=== PATIENT | male | born 1950 | race Caucasian/White ===

== ENCOUNTER → 2017-11-01 | Outpatient (CLI) | payer OTHER ==
[~2017-11-01] MED LIST: AMOCLA875 PO; AMOX500 PO; CARI350 PO; CEPH500 PO; CIPDEXSU OT; CLIN300 PO; CYCL10 PO; Cleocin HCl300 MG PO; DOC250 PO; DULO30 PO; FURO40 PO; HYDACE5 PO; IBUP200; IBUP400 PO; IBUP600 PO; IBUP800; IBUP800 PO; K-SOL40 MEQ/15 PO; LEVO750 PO; METCAR500 PO; NAPR500 PO; NYST100000 PO; OXYACE5T PO; OXYACE7.5T PO; OXYC10ER PO; OXYC5; OXYC5 PO; PENNAL50 PO; PENVK500 PO; PROM25 PO; Prednisone20 MG PO; RXHYDMOR2 PO; RXTRAM50 PO; SILSUL1TC TOP; SULTRIDS PO; SUMA25 PO; TRAM50 PO; VITAMIN D5000 UNIT PO; Zithromax250 MG PO
== END | disposition home or self-care (01) ==
LOC: LAB SHORT 15:10 → LAB 15:10
DX: I83.009 Varicose veins of unspecified lower extremity with ulcer of unspecified site (principal); L01.00 Impetigo, unspecified
CPT/HCPCS: 87070; 87205

== ENCOUNTER → 2018-08-08 | Outpatient (CLI) | payer OTHER ==
[2018-08-09 10:28] LABS: Antinuclear Antibody Screen Negative (Negative)
== END | disposition home or self-care (01) ==
LOC: LAB SHORT 10:40 → LAB 10:40
PROVIDERS: Internal Medicine Hematology & Oncology
DX: D69.3 Immune thrombocytopenic purpura (principal); I82.622 Acute embolism and thrombosis of deep veins of left upper extremity
CPT/HCPCS: 86038

== ENCOUNTER 2018-08-19 07:25 | Day surgery (SDC) | payer OTHER | END 2018-08-19 17:32 | disposition home or self-care (01) | LOC: ATC 07:25 → EDSTATUS 07:27 → ATC 17:32 | DX: D69.3 Immune thrombocytopenic purpura (principal) | CPT/HCPCS: 36430; 86850; 86900; 86901; 86923; J7050; P9016 ==

== ENCOUNTER → 2018-09-04 | Outpatient (CLI) | payer OTHER ==
[2018-09-06 04:12] LABS: HIV SCREEN 4TH GENERATION WRFX Non Reactive (Non Reactive)
== END | disposition home or self-care (01) ==
LOC: LAB 14:27 → LAB SHORT 14:27
PROVIDERS: Internal Medicine Hematology & Oncology
DX: D69.3 Immune thrombocytopenic purpura (principal)
CPT/HCPCS: 87389

== ENCOUNTER 2019-01-13 07:09 | Inpatient (IN) | payer OTHER ==
[~2019-01-13] VITALS: Ht 160 cm; Wt 49.1 kg
[2019-01-13] MEDS ORDERED: ALBU90OI INH (07:20)
[2019-01-13] MEDS ORDERED: BUDE6HFA INH (07:20)
[2019-01-13] MEDS ORDERED: Bactrim 400-801 EACH PO (07:21)
[2019-01-13 07:29] LABS: BASOPHILS ABSOLUTE AUTO 0.04 K/mm3 (0.00-0.23); BASOPHILS PERCENT AUTO 0 % (0-2); EOSINOPHILS ABSOLUTE AUTO 0.12 K/mm3 (0.00-0.68); EOSINOPHILS PERCENT AUTO 1 % (0-6); Hematocrit 46.1 % (37.0-53.0); Hemoglobin 14.9 g/dL (13.5-17.5); IMMATURE GRAN ABSOLUTE AUTO 0.06 K/mm3 (0.00-0.10); IMMATURE GRAN PERCENT AUTO 0 % (0-1); LYMPHOCYTES ABSOLUTE AUTO 0.52 K/mm3 (0.84-5.20); LYMPHOCYTES PERCENT AUTO 4 % (21-46); MONOCYTES ABSOLUTE AUTO 1.07 K/mm3 (0.16-1.47); MONOCYTES PERCENT AUTO 8 % (4-13); Mean Corpuscular HGB 26.9 pg (26.0-34.0); Mean Corpuscular HGB Conc 32.3 g/dL (31.5-36.5); Mean Corpuscular Volume 83 fL (80-100); Mean Platelet Volume 9.6 fL (9.1-12.4); NEUTROPHILS ABSOLUTE AUTO 12.25 K/mm3 (1.96-9.15); NEUTROPHILS PERCENT AUTO 87 % (41-73); Platelet Count 162 K/mm3 (150-400); RDW Coefficient Variation 22.1 % (11.7-14.2); RDW Standard Deviation 65.9 fL (35.1-46.3); Red Blood Cell Count 5.53 M/mm3 (4.30-5.90); White Blood Cell Count 14.06 K/mm3 (4.00-11.30)
[2019-01-13 07:47] LABS: Alanine Aminotransfer (ALT/SGP 25 U/L (12-78); Albumin, Blood 3.2 g/dL (3.4-5.0); Albumin/Globulin Ratio 0.6 (0.8-1.8); Alk Phos 83 U/L (50-136); Anion Gap 4 mmol/L (6-16); Aspartate Aminotrans (AST/SGOT 13 U/L (12-37); Bilirubin, Total 0.6 mg/dL (0.1-1.0); Blood Urea Nitrogen 7 mg/dL (8-24); Bun/Creatinine Ratio 15.6 (12.0-20.0); CO2, Blood 31 mmol/L (21-32); Calcium, Blood 7.7 mg/dL (8.5-10.1); Chloride, Blood 103 mmol/L (98-108); Creatinine, Blood 0.45 mg/dL (0.60-1.20); Globulin, Blood 5.4 g/dL (2.2-4.0); Glomerular Filtration Rate >60 (60-); Glucose, Blood 113 mg/dL (70-99); Potassium, Blood 3.4 mmol/L (3.5-5.5); Sodium, Blood 138 mmol/L (136-145); Total Protein, Blood 8.6 g/dL (6.4-8.2)
--- NOTE | 2019-01-13 13:06 | NUR ---
1120 ADMIT TO PCU STATUS... VERY THIN DECONDITIONED PT ADMITTED PER STRETCHER TO ICU-14. ON O2 AT 3L AND SATS ADIQUATE BUT PT WOB IS NOTED AT RR OF 22-[address] ELEVATED BP THAT INC. WITH ACTIVITIY OF STANDING AT BED SIDE. POOR PERIPHERAL SKIN CONTITION, SEE PHOTO'S. RT REQUESTED FOR RX. PT HAS BEEN CALLING OUT FOR MORE MEDS AND WAS INSTRUCTED MULTIPLE TIMES THAT ORDERS MUST BE FOLLOWED GIVEN FOR NOW. PT IS COOP BUT VERY RESTLESS, WEAK, AND SOB. IV IS PER RAC 20G PER E.D. ABX AND CARE GIVEN. LUNGS ARE VERY DIM. T/O.
--- NOTE | 2019-01-13 15:32 | NUR ---
PT CONT TO GET UP FREQUENTLY TO VOID AND BM NOTED X3. STOOL FOR C-DIFF SENT. PT REMAINS VERY IMPULSIVE AND RESTLESS EVEN WITH MEDS FOR PAIN/WITHRAWAL. NS AT 100ML AND ABX INFUSING. PT REMAIN RESTLESS AND IT REMAINS UNCLEAR IF M.S. IS HELPING. WILL FOLLOW. BP IS ELEVATED AND WILL CALL TO REPORT.
--- NOTE | 2019-01-13 18:48 | NUR ---
170: CARE ASSUMED, MORPHINE ADMINISTERED FOR BACK PAIN 04/29. PT DENIES OTHER NEEDS. HR 110'S, BP HYPERTENSIVE. 1800: LS DIMINISHED WITH EXPIRATORY WHEEZES T/O, PT C/O SOB. SPOT 94% ON 3L/NC. PT ANXIOUS AND AGITATED, FRIEND AT BEDSIDE. PT ORIENTED TO SELF AND SITUATION, CONFUSED ABOUT DATE. ACTING IMPULSIVELY. BED ALARM ON, FALL PRECAUTIONS IN PLACE. 1814: RT CALLED FOR NEB TREATMENT. SPO2 92% 3L/NC. 1834: BP 183/101, DR. TALBERT NOTIFIED, [place] RECEIVED. PT'S FRIEND NO LONGER AT BEDSIDE. 1849: COZAAR AND NICOTINE PATCH ADMINISTERED AT THIS TIME. PT'S SOB IMPROVING, SPO2 97% ON RA. PT HAS EXERTIONAL SOB WHICH IS EXACERBATED BY IMPULSIVE BEHAVIORS. PT REPEATEDLY TRIES TO GET OOB TO VOID, DESPITE SOB AND INSTRUCTION TO USE CALL LIGHT. GAIT STEADY TO STAND AT BEDSIDE WITH SBA, BUT PT BECOMES ANXIOUS WITH INCREASING SOB. PT IN BED AT THIS TIME, NEEDS CONSTANT REDIRECTION TO STAY IN BED. REPORT TO ONCOMING SHIFT.
--- NOTE | 2019-01-13 20:21 | NUR ---
ASSUMING CARE RECEIVED PT REPORT FROM KRIS ALEMAN. PT IS ALERT AND ORIENTED THOUGH SPEECH IS GARBLED AND DIFFICULT TO UNDERSTAND. PT IS DISORIENTED TO DATE AND TIME. PT IS ADMITTED DUE TO SOB AND PNEUMONIA. PT IS ON 3L O2 VIA NC WITH SPO2 IN THE MID 90'S. PT IS CONTINUALLY PULLING AT O2 TUBING AND REMOVING NC. PT IS ABLE TO FOLLOW COMMANDS BUT APPEARS TO BE HIGHLY IMPULSIVE AND HAS NOT BEEN OBSERVED TO USE CALL LIGHT OF YET BY THIS RN, DESPITE INSTRUCTIONS TO DO SO. PT IS RECEIVING NS AT 100ML/HR, WITH ZOSYN PIGGYBACK RUNNING AT THIS TIME. PT LUNG SOUNDS EXHIBIT WHEEZES AND ARE DIMINISHED IN THE BASES. PT HAS VERY SCALY SKIN ON THE BLE FROM THE KNEES DOWN. PT PULSES ARE PALPABLE BILATERALLY. PT HAS BEEN MAKING VERY FREQUENT SMALL VOIDS. PT IS KATT TO STAND WITH MINIMAL ASSISTANCE. BEDALARM ON AT THIS ITME DUE TO PTS FREQUENT ATTEMPTS TO GET OUT OF BED WITHOUT ASSISTANCE. PT HR IS IN THE 100'S AT THIS ITME. PT SBP IS IN THE 160-180 RANGE. PT PROVIDED 2100 MEDICATIONS, WILL OBSERVE EFFECT ON SBP BEFORE ADMINISTERING FURTHER MEDICATIONS. ASSUMED CARE OF PT AT THE TIME OF SHIFT REPORT. WILL CONTINUE TO MONITOR PT.
[2019-01-14 01:21] LABS: Source, Urine Catheter
[2019-01-14 01:27] LABS: Appearance, Urine Clear (Clear); Bilirubin, Urine Neg (Neg); Blood, Urine 2+ (Neg); Color, Urine Yellow (P-Yellow); Glucose Qualitative, Urine 1+ (Neg); Ketones, Urine 3+ (Neg); Leukocyte Esterase, Urine Neg (Neg); Nitrite, Urine Neg (Neg); Protein, Urine 1+ (Neg); Specific Gravity, Urine 1.005 (1.003-1.022); Urobilinogen, Urine NORM (Normal)
[2019-01-14 01:34] LABS: Bacteria Few /hpf; Red Blood Cells, Urine 0-2 /hpf (0-2); Squamous Epithelial Cells Not Seen /hpf (Few); White Blood Cells, Urine 0-2 /hpf (0-5)
--- NOTE | 2019-01-14 01:38 | NUR ---
CATHETER PT HAS HAD MULTIPLE FREQUENT SMALL VOIDS OF LESS THAN 100ML. PT CALLED THIS RN INTO ROOM TWICE TO USE URINAL WITHOUT ANY URINE OUTPUT. BLADDR SCAN PERFORMED WITH APPROX 400ML OF URINE READ THROUGH BLADDER SCAN. CRAWFORD CATH INSERTED WITH ASSISTANCE FROM ZARINA RN. PT HAD APPROX 350 OF CLEAR YELLOW URINE OUTPUT SOON CRAWFORD PLACED. UA SENT TO LAB. WILL CONTINUE TO MONITOR PT.
[2019-01-14 05:27] LABS: BASOPHILS ABSOLUTE AUTO 0.03 K/mm3 (0.00-0.23); BASOPHILS PERCENT AUTO 0 % (0-2); EOSINOPHILS ABSOLUTE AUTO 0.01 K/mm3 (0.00-0.68); EOSINOPHILS PERCENT AUTO 0 % (0-6); Hematocrit 46.6 % (37.0-53.0); Hemoglobin 15.5 g/dL (13.5-17.5); IMMATURE GRAN ABSOLUTE AUTO 0.08 K/mm3 (0.00-0.10); IMMATURE GRAN PERCENT AUTO 1 % (0-1); LYMPHOCYTES ABSOLUTE AUTO 0.44 K/mm3 (0.84-5.20); LYMPHOCYTES PERCENT AUTO 3 % (21-46); MONOCYTES ABSOLUTE AUTO 0.85 K/mm3 (0.16-1.47); MONOCYTES PERCENT AUTO 6 % (4-13); Mean Corpuscular HGB 27.1 pg (26.0-34.0); Mean Corpuscular HGB Conc 33.3 g/dL (31.5-36.5); Mean Corpuscular Volume 82 fL (80-100); Mean Platelet Volume 10.1 fL (9.1-12.4); NEUTROPHILS ABSOLUTE AUTO 13.05 K/mm3 (1.96-9.15); NEUTROPHILS PERCENT AUTO 90 % (41-73); Platelet Count 121 K/mm3 (150-400); RDW Coefficient Variation 21.7 % (11.7-14.2); RDW Standard Deviation 63.1 fL (35.1-46.3); Red Blood Cell Count 5.72 M/mm3 (4.30-5.90); White Blood Cell Count 14.46 K/mm3 (4.00-11.30)
[2019-01-14 05:45] LABS: Alanine Aminotransfer (ALT/SGP 25 U/L (12-78); Albumin/Globulin Ratio 0.6 (0.8-1.8); Alk Phos 75 U/L (50-136); Anion Gap 7 mmol/L (6-16); Aspartate Aminotrans (AST/SGOT 18 U/L (12-37); Bilirubin, Total 0.5 mg/dL (0.1-1.0); Blood Urea Nitrogen 6 mg/dL (8-24); Bun/Creatinine Ratio 16.9 (12.0-20.0); CO2, Blood 29 mmol/L (21-32); Calcium, Blood 7.1 mg/dL (8.5-10.1); Chloride, Blood 103 mmol/L (98-108); Creatinine, Blood 0.36 mg/dL (0.60-1.20); Globulin, Blood 4.9 g/dL (2.2-4.0); Glomerular Filtration Rate >60 (60-); Glucose, Blood 108 mg/dL (70-99); Potassium, Blood 3.2 mmol/L (3.5-5.5); Sodium, Blood 139 mmol/L (136-145); Total Protein, Blood 7.9 g/dL (6.4-8.2); Vancomycin, Trough 1.9 ug/mL (5.0-10.0)
--- NOTE | 2019-01-14 05:55 | NUR ---
SHIFT SUMMARY NOTE PT HAS BECOME MORE CONFUSED AND IMPULSIVE OVERNIGHT. PT HAS MADE FREQUENT ATTEMPTS TO GET OUT OF BED TO URINATE, DESPITE HAVING CRAWFORD CATH IN PLACE. PT WAS ALSO OBSERVED TO PULL AT CRAWFORD CATH. PT IS IN AYAAN VEST AT THIS TIME. PT CONTINUES TO ATTEMPT TO CLIMB OUT OF BED. PT HR HAS MAINTAINED IN THE 90-100 RANGE AND APPEARS SINUS. PT BP HAS BEEN ELEVATED AT TIMES REACHING INTO THE 200'S. DR HAN CALLED, AND ORDER RECEIVED FOR LABETALOL. LABETALOL PROVIDED WITH SOME EFFECT, REDUCING SBP TO THE 160'S. PT HAS BEEN PROVIDED MORPHINE FREQUENTLY AND ATIVAN X1 THROUGH THE SHIFT. PT REMAINS ON 3L O2 VIA NC WITH SPO2 MAINTAINING IN THE 90'S. PT CONTINUES TO BE WHEEZY AND HAVE A PRODUCTIVE COUGH. PT CONTINUES TO RECEIVE NS AT 100ML/HR. [facility]
--- NOTE | 2019-01-14 11:42 | NUR ---
AM NOTE... PT IS C/O NEEDING "MEDICATIONS" AND IS MUMBLING AT TIMES. PT NOW HAS CRAWFORD CATH OF YELLOW CLEAR URINE. VS NOTED. BP REMAINS ELEVATED AND WILL ADDRESS WTIH DR TALBERT.
--- NOTE | 2019-01-14 17:46 | NUR ---
RECEIVED REPORT FROM KRIS Gorman. PT WILL BE TRANSFERRED FROM ICU TO PCU 13. AWAITING ARRIVAL OF PATIENT.
--- NOTE | 2019-01-14 18:24 | NUR ---
PATIENT ARRIVED TO UNIT, 3 LPM VIA NC. PT REPORTS PAIN 9/10, WILL LOOK AT EMAR AND ASSESS WHAT MEDICATIONS CAN BE GIVEN BEFORE SHIFT CHANGE. PT APPEARS RESTFUL, HE REPOSITIONED INDEPENDENTLY TO RIGHT SIDE. CRAWFORD IN PLACE, DRAINING TO GRAVITY. AYAAN IN PLACE SECURED TO BED B/L. WILL CONTINUE TO MONITOR AND GIVE REPORT TO NOC RN. BED LOCKED, LOW AND ALARM IS SET.
--- NOTE | 2019-01-14 19:50 | NUR ---
PM NOTE. ASSUMED CARE OF PT APROX 1900, PT WAS ADMITTED FOR PNA, PT IS ALSO CURRENT HISTORY OF HEROIN AND ETOH ABUSE GOING THROUGH WITHDRAWLS. TELE INTACT, ST IN THE 120'S, PT' BP 165/97, PT HAS TRACE EDEMA TO HIS BILAT FEET. L/S COARSE T/O W/EXP WHEEZES AND DIM IN THE BASES. PT IS ON 2L NC AT 94%. BT PRESENT AND HYPOACTIVE, ABD IS MOD DISTENDED, SOFT AND NONTENDER TO PALP. PT'S RR IS 36, EVEN AND SLIGHTLY LABORED. PT STATES HE IS IN 9/10 PAIN "ALL OVER AND MY BACK." PT IS SLIGHTLY FEBRILE AT 100.7. PT IS SLIGHTLY LETHARGIC, RESPONDING TO VERBAL AND TOUCH STIMULI. PALLIATIVE CARE RN SPOKE TO THIS RN, WE DISCUSSED PLAN OF CARE ON HOW TO CONTROL THE PT'S W/D SYMPTOMS. MEDICATIONS WERE GIVEN PER EMAR AND PER DISCUSSION TO PT.
--- NOTE | 2019-01-14 19:53 | NUR ---
PT UPDATE... PAIN MEDICATION WAS GIVEN TO PT PER EMAR. PT IS CURRENTLY LETHARGIC, PT RESPONDS TO TOUCH/PAINFUL STIMULI, RR IS 22 EVEN AND SLIGHTLY LABORED. OTHER MEDICATIONS WERE HELD, SCADA ENGINEER AWARE. ATTENDS WERE PLACED AND MEPILEX TO THE PT'S COCCYX AND LOWER SPINE TO PREVENT BREAKDOWN. PT'S CURRENT BP 152/91 HR 110. WILL CONTINUE TO MONITOR.
--- NOTE | 2019-01-15 01:36 | NUR ---
PT UPDATE... PT MORE AWAKE, AT THIS TIME, HE REPONDS TO VERBAL STIMULI RATHER THAN TOUCH/PAINFUL STIMULI. PT'S RR IS 32, WORK OF BREATHING IS STARTING TO INCREASE. PT'S BP 160/97, PT MOANS WITH ANY TYPE OF MOVEMENT BUT FOLLOWS DIRECTIONS, PT ABLE TO VERBALLY RESPOND TO QUESTIONS/REQUESTS BUT IT IS VERY HARD FOR HIM TO OPEN HIS EYES. HE IS STILL LETHARGIC/SLEEPY AT THIS TIME. PT IS FEBRILE AT 100.6. PT HAS NOT ATTEMPTED TO CLIMB OUT OF BED ALL SHIFT. AYAAN VEST STILL IN PLACE. CALL LIGHT IN REACH, BED IS LOCKED AND LOW WITH BED ALARM ON, WILL CONTINUE TO MONITOR.
--- NOTE | 2019-01-15 02:11 | NUR ---
PT UPDATE... PT WAS HEARD YELLING OUT FROM HIS ROOM. UPON ASSESSMENT PT'S BP WAS 169/105, PT WAS ALSO ASKING FOR PAIN MEDICATION FOR HIS W/D SYMPTOMS. PT WAS MEDICATED PER EMAR. PT WAS ALSO GIVEN THE CLONIDINE THAT WAS HELD AT THE 2100 MEDICATION TIME DUE TO THE PT BEING UNABLE TO TAKE IT DUE TO LETHARGY. WILL CONTINUE TO MONITOR.
--- NOTE | 2019-01-15 05:43 | NUR ---
SHIFT SUMMARY. PT HAS SLEPT MOST OF THIS SHIFT. PT HAS BEEN IN THE AYAAN VEST BUT HAS NOT ATTEMPTED TO GET OUT OF BED AT ALL TONIGHT. PT HAS BEEN MEDICATED PER EMAR FOR HIS W/D SYMPTOMS AND HTN. PT HAS NS RUNNING @100 AND WAS ABLE TO TAKE SMALL AMOUNTS OF WATER WHEN HE WAS MORE ALERT. PT'S CRAWFORD IS PATENT AND DRAINED 575MLS OF DARK YELLOW, CLEAR URINE TO GRAVITY. ATTENDS WAS PLACED ON PT DUE TO PT'S SEVERE LETHARGY FOR THE FIRST HALF OF THE SHIFT. PT HAS NOT HAD A BM THIS SHIFT. LOTION WAS APPLED x2 TO THE PT'S ARMS AND LEGS. PT'S O2 HAS BEEN TITRATED FROM 3L NC TO 1-2L NC WITH O2 SATS AT 90%-94%. PT HAS BEEN FEBRILE T/O THIS SHIFT WITH TMAX AT 100.6. PT STILL HAS EXP WHEEZES AND COARSENESS T/O ALL LOBES. PT HAS BEEN ABLE TO HELP REPOSITION HIMSELF IN THE BED Q2 AND PRN. CALL LIGHT IN REACH, BED IS LOCKED AND LOW WITH BED ALARM ON, WILL CONTINUE TO MONITOR UNTIL REPORT IS GIVEN TO ONCOMING RN.
[2019-01-15 07:21] LABS: BASOPHILS ABSOLUTE AUTO 0.03 K/mm3 (0.00-0.23); BASOPHILS PERCENT AUTO 0 % (0-2); EOSINOPHILS ABSOLUTE AUTO 0.02 K/mm3 (0.00-0.68); EOSINOPHILS PERCENT AUTO 0 % (0-6); Hematocrit 45.4 % (37.0-53.0); Hemoglobin 15.3 g/dL (13.5-17.5); IMMATURE GRAN ABSOLUTE AUTO 0.11 K/mm3 (0.00-0.10); IMMATURE GRAN PERCENT AUTO 1 % (0-1); LYMPHOCYTES ABSOLUTE AUTO 0.56 K/mm3 (0.84-5.20); LYMPHOCYTES PERCENT AUTO 4 % (21-46); MONOCYTES ABSOLUTE AUTO 0.85 K/mm3 (0.16-1.47); MONOCYTES PERCENT AUTO 5 % (4-13); Mean Corpuscular HGB 27.3 pg (26.0-34.0); Mean Corpuscular HGB Conc 33.7 g/dL (31.5-36.5); Mean Corpuscular Volume 81 fL (80-100); NEUTROPHILS ABSOLUTE AUTO 14.05 K/mm3 (1.96-9.15); NEUTROPHILS PERCENT AUTO 90 % (41-73); Platelet Count 78 K/mm3 (150-400); RDW Coefficient Variation 21.9 % (11.7-14.2); RDW Standard Deviation 62.9 fL (35.1-46.3); Red Blood Cell Count 5.61 M/mm3 (4.30-5.90); White Blood Cell Count 15.62 K/mm3 (4.00-11.30)
[2019-01-15 07:31] LABS: Mean Platelet Volume 9.9 fL (9.1-12.4)
[2019-01-15 07:41] LABS: Alanine Aminotransfer (ALT/SGP 20 U/L (12-78); Albumin, Blood 2.6 g/dL (3.4-5.0); Albumin/Globulin Ratio 0.6 (0.8-1.8); Alk Phos 63 U/L (50-136); Anion Gap 8 mmol/L (6-16); Aspartate Aminotrans (AST/SGOT 21 U/L (12-37); Bilirubin, Total 0.4 mg/dL (0.1-1.0); Blood Urea Nitrogen 13 mg/dL (8-24); Bun/Creatinine Ratio 33.2 (12.0-20.0); CO2, Blood 28 mmol/L (21-32); Calcium, Blood 6.4 mg/dL (8.5-10.1); Chloride, Blood 105 mmol/L (98-108); Creatinine, Blood 0.39 mg/dL (0.60-1.20); Globulin, Blood 4.7 g/dL (2.2-4.0); Glomerular Filtration Rate >60 (60-); Glucose, Blood 103 mg/dL (70-99); Potassium, Blood 2.9 mmol/L (3.5-5.5); Sodium, Blood 141 mmol/L (136-145); Total Protein, Blood 7.3 g/dL (6.4-8.2); Vancomycin, Trough 4.7 ug/mL (5.0-10.0)
[2019-01-15 08:12] LABS: HIV SCREEN 4TH GENERATION WRFX Non Reactive (Non Reactive)
--- NOTE | 2019-01-15 13:53 | NUR ---
Met . pt lying in bed weak but better than yesterday encouraged pt. and gave him advice,offered spiritual and emotional support anmd anointed pt. as he requested.
--- NOTE | 2019-01-15 17:00 | NUR ---
SHIFT SUMMARY PT RESTING IN BED THROUGHOUT THE DAY. VSS. ALERT AND ORIENTED X3. C/O 9/10 PAIN ALL DAY, MEDICATED WITH SCHEDULED AND PRN PAIN MEDS. LUNG SOUNDS EXPIRATORY WHEEZES THROUGHOUT, DIMINISHED BASES. SINUS TACHYCARDIA RATE 103 PER TELEMETRY. DISCOLORATION / FLAKY SKIN NOTED TO BLE. LEFT ARM WEAKNESS NOTED, PT STATES THIS IS NORMAL FOR HIM. CRAWFORD DRAINING CLEAR YELLOW URINE. PT IN AYAAN VEST, RESTING QUIETLY. AYAAN VEST REMOVED 1435. PT RESTING IN BED, MAKING NO ATTEMPTS TO GET OUT OF BED. WILL CONTINUE TO MONITOR.
[2019-01-16 04:29] LABS: BASOPHILS ABSOLUTE AUTO 0.03 K/mm3 (0.00-0.23); BASOPHILS PERCENT AUTO 0 % (0-2); EOSINOPHILS ABSOLUTE AUTO 0.15 K/mm3 (0.00-0.68); EOSINOPHILS PERCENT AUTO 1 % (0-6); Hematocrit 45.7 % (37.0-53.0); Hemoglobin 15.1 g/dL (13.5-17.5); IMMATURE GRAN ABSOLUTE AUTO 0.11 K/mm3 (0.00-0.10); IMMATURE GRAN PERCENT AUTO 1 % (0-1); LYMPHOCYTES ABSOLUTE AUTO 0.92 K/mm3 (0.84-5.20); LYMPHOCYTES PERCENT AUTO 6 % (21-46); MONOCYTES ABSOLUTE AUTO 1.43 K/mm3 (0.16-1.47); MONOCYTES PERCENT AUTO 10 % (4-13); Mean Corpuscular HGB 27.5 pg (26.0-34.0); Mean Corpuscular Volume 83 fL (80-100); NEUTROPHILS ABSOLUTE AUTO 12.38 K/mm3 (1.96-9.15); NEUTROPHILS PERCENT AUTO 83 % (41-73); RDW Coefficient Variation 21.9 % (11.7-14.2); RDW Standard Deviation 65.1 fL (35.1-46.3); White Blood Cell Count 15.02 K/mm3 (4.00-11.30)
[2019-01-16 04:36] LABS: Platelet Count 26 K/mm3 (150-400)
[2019-01-16 04:52] LABS: Alanine Aminotransfer (ALT/SGP 19 U/L (12-78); Albumin, Blood 2.5 g/dL (3.4-5.0); Albumin/Globulin Ratio 0.6 (0.8-1.8); Alk Phos 63 U/L (50-136); Anion Gap 4 mmol/L (6-16); Aspartate Aminotrans (AST/SGOT 12 U/L (12-37); Bilirubin, Total 0.4 mg/dL (0.1-1.0); Blood Urea Nitrogen 14 mg/dL (8-24); Bun/Creatinine Ratio 32.4 (12.0-20.0); CO2, Blood 34 mmol/L (21-32); Calcium, Blood 6.5 mg/dL (8.5-10.1); Chloride, Blood 109 mmol/L (98-108); Creatinine, Blood 0.43 mg/dL (0.60-1.20); Globulin, Blood 4.2 g/dL (2.2-4.0); Glomerular Filtration Rate >60 (60-); Glucose, Blood 96 mg/dL (70-99); Potassium, Blood 3.3 mmol/L (3.5-5.5); Sodium, Blood 147 mmol/L (136-145); Total Protein, Blood 6.7 g/dL (6.4-8.2)
--- NOTE | 2019-01-16 06:49 | NUR ---
END OF SHIFT SUMMARY ASSUMED CARE OF PT @1900. PT ALERT AND ORIENTED BUT DOES HAVE MOMENTS OF CONFUSION. PT HAS REQUIRED REPOSITIONING THIS SHIFT. PT REQURING Q2H MORPHINE 4MG FOR CHRONIC GENERALIZED PAIN BUT DID SLEEP THROUGH A COUPLE DOSING TIMES. PT HAS BEEN COOPERATIVE WITH STAFF THIS WHOLE SHIFT. NO RESTRAINTS REQUIRED. PT HAS NOT ATTEMPTED TO GET OUT OF BED. CONTINUES WITH CRAWFORD FOR RETENTION, PATENT AND DRAINING. NS CONTINUES TO INFUSE @100. HAS BEEN INCONTINENT OF BOWEL MOVEMENTS X2. LUNGS CONTINUE TO BE COARSE. 2L NC T/O SHIFT, CONTINUOUS SPO2 >94%. POTASSIUM NOTICED TO HAVE BEEN 2.9 WITH PREV AM LABS, HAS STONE TO 3.3 [address] THIS AM LABS. DR TAYLOR WAS MADE AWARE OF THESE RESULTS. CRITICAL PLATELT COUNT OF 26 CALLED INTO [facility], NO ORDERS GIVEN. PT HAS HAD CALL LIGHT WITHIN REACH AND BED IN LOWEST POSITION WITH BED ALARM.
--- NOTE | 2019-01-16 11:05 | NUR ---
REPORT GIVEN TO ALICIA PONCE.
--- NOTE | 2019-01-16 11:19 | NUR ---
ALL PERSONAL BELONGINGS SENT UP TO ROOM 324. TELE DC'D AND RETURNED TO PCU GUTTER INSTALLER.
--- NOTE | 2019-01-16 12:38 | NUR ---
PT ARRIVED TO THE MEDICAL FLOOR FROM THE PCU, A/OX3, VIA WHEELCHAIR, THE PT WAS ORIENTED TO THE ROOM LAYOUT AND CALL SYSTEM, THE PT WAS MEDICATED FOR PAIN 04/29, THE PT BREATH SOUNDS APPEAR TO BE DECREASED AT THIS TIME, PT WAS GIVEN LUNCH, FRIEND AT THE BEDSIDE, I AGREE WITH WESLEY PONCE AM ASSESSMENT, CALL LIGHT IN REACH, BED IN THE LOW POSITION
--- NOTE | 2019-01-16 14:27 | NUR ---
Pt.is in bed and on phone he reports doing much better encouraged pt.,offered spiritual support and prayers.
--- NOTE | 2019-01-16 17:13 | NUR ---
PT IS A/OX3, PLEASANT AND COOPERATIVE, THE PT IS UP WITH ASSIST TO THE CHAIR, THE PT IS TRANSFERED FROM THE PCU, THE PT REPOTRTED PAIN AND WAS MEDICATED FOR PAIN Q2HRS T/O THE DAY, THE PT APPEARS TO BE BREATHING EASILY ON RA, CALL LIGHT IN REACH, WILL CONTINUE TO MONITOR AND ASSESS FOR CHANGES
--- NOTE | 2019-01-17 04:51 | NUR ---
SHIFT SUMMARY PT HAS SLEPT OFF AND ON DURING THE NIGHT, HAS BEEN REQUESTING IV MORPHINE EVERY 2 HRS AROUND THE CLOCK. IVF'S INFUSING PER PUMP WITHOUT DIFFICULTY. CRAWFORD CATH PATENT AND DRAINING CLEAR YELLOW URINE. PT IS ALERT AND ORIENTED, USES CALL LIGHT APPROPRIATLEY. NO ACUTE EVENTS NOTED DURING THE NIGHT, WILL CONTINUE TO MONITOR.
[2019-01-17 05:10] LABS: BASOPHILS ABSOLUTE AUTO 0.02 K/mm3 (0.00-0.23); BASOPHILS PERCENT AUTO 0 % (0-2); EOSINOPHILS ABSOLUTE AUTO 0.01 K/mm3 (0.00-0.68); EOSINOPHILS PERCENT AUTO 0 % (0-6); Hematocrit 39.2 % (37.0-53.0); Hemoglobin 12.7 g/dL (13.5-17.5); IMMATURE GRAN ABSOLUTE AUTO 0.08 K/mm3 (0.00-0.10); IMMATURE GRAN PERCENT AUTO 1 % (0-1); LYMPHOCYTES ABSOLUTE AUTO 0.81 K/mm3 (0.84-5.20); LYMPHOCYTES PERCENT AUTO 8 % (21-46); MONOCYTES ABSOLUTE AUTO 1.36 K/mm3 (0.16-1.47); MONOCYTES PERCENT AUTO 13 % (4-13); Mean Corpuscular HGB 26.7 pg (26.0-34.0); Mean Corpuscular HGB Conc 32.4 g/dL (31.5-36.5); Mean Corpuscular Volume 82 fL (80-100); NEUTROPHILS ABSOLUTE AUTO 8.07 K/mm3 (1.96-9.15); NEUTROPHILS PERCENT AUTO 78 % (41-73); RDW Coefficient Variation 21.6 % (11.7-14.2); Red Blood Cell Count 4.76 M/mm3 (4.30-5.90); White Blood Cell Count 10.35 K/mm3 (4.00-11.30)
[2019-01-17 05:36] LABS: Platelet Count 2 K/mm3 (150-400)
[2019-01-17 05:59] LABS: Alanine Aminotransfer (ALT/SGP 18 U/L (12-78); Albumin, Blood 2.5 g/dL (3.4-5.0); Albumin/Globulin Ratio 0.7 (0.8-1.8); Alk Phos 53 U/L (50-136); Anion Gap 2 mmol/L (6-16); Aspartate Aminotrans (AST/SGOT 13 U/L (12-37); Bilirubin, Total 0.5 mg/dL (0.1-1.0); Blood Urea Nitrogen 12 mg/dL (8-24); Bun/Creatinine Ratio 32.7 (12.0-20.0); CO2, Blood 32 mmol/L (21-32); Calcium, Blood 6.5 mg/dL (8.5-10.1); Chloride, Blood 109 mmol/L (98-108); Creatinine, Blood 0.37 mg/dL (0.60-1.20); Globulin, Blood 3.7 g/dL (2.2-4.0); Glomerular Filtration Rate >60 (60-); Glucose, Blood 76 mg/dL (70-99); Potassium, Blood 3.4 mmol/L (3.5-5.5); Sodium, Blood 143 mmol/L (136-145); Total Protein, Blood 6.2 g/dL (6.4-8.2)
--- NOTE | 2019-01-17 06:43 | NUR ---
PLATELETS CRITICALLY LOW, ORDERS RECEIVED FROM HOSPITALIST. WILL BE TRANFUSING 1 UNIT PLATELETS. AWAITING RESULTS OF TYPE AND CROSS.
--- NOTE | 2019-01-17 12:36 | NUR ---
NOTIFIED DR. TALBERT PT IS VERY ANXIOUS, HR 111 AND REPORTING HIS PAIN IS NOT BEING MANAGED WITH CURRENT REGIMEN. NOTIFIED DR. TALBERT PT HAS PO ATIVAN ORDERED BUT IT'S ORDERED FOR AGITATION. DR. TALBERT SAID OK TO SWITCH PRN REASON TO ANXIETY ON ATIVAN ORDER. NO OTHER NEW ORDERS AT THIS TIME.
--- NOTE | 2019-01-17 13:26 | NUR ---
NOTIFIED DR. TALBERT PT C/O NASAL CONGESTION. DR. TALBERT SAID TO ORDER FLONASE BID. NO OTHER NEW ORDERS AT THIS TIME.
--- NOTE | 2019-01-17 15:15 | NUR ---
Pt. is doing much better, prayed for him and encouraged pt.
[2019-01-17 17:28] LABS: Hematocrit 42.7 % (37.0-53.0); Hemoglobin 14.2 g/dL (13.5-17.5); Mean Corpuscular HGB 27.6 pg (26.0-34.0); Mean Corpuscular HGB Conc 33.3 g/dL (31.5-36.5); Mean Corpuscular Volume 83 fL (80-100); RDW Coefficient Variation 21.2 % (11.7-14.2); RDW Standard Deviation 63.7 fL (35.1-46.3); Red Blood Cell Count 5.14 M/mm3 (4.30-5.90); White Blood Cell Count 11.62 K/mm3 (4.00-11.30)
[2019-01-17 17:35] LABS: Platelet Count 7 K/mm3 (150-400)
--- NOTE | 2019-01-17 19:20 | NUR ---
SHIFT SUMMARY- PT C/O GEN AND BACK PAIN. MEDS GIVEN PER EMAR. PT REPORTS SOB. 97% ON 2L O2 NC. BREATHING TX PER EMAR. DENIES N/V. PT RECIEVED 1 UN[address] OF PLTS TODAY. 1 ASSIST TO THE BSC. NO OTHER SIGNIFICANT CHANGES THIS SHIFT.
[2019-01-18 04:50] LABS: BASOPHILS ABSOLUTE AUTO 0.02 K/mm3 (0.00-0.23); BASOPHILS PERCENT AUTO 0 % (0-2); EOSINOPHILS ABSOLUTE AUTO 0.01 K/mm3 (0.00-0.68); EOSINOPHILS PERCENT AUTO 0 % (0-6); Hematocrit 40.2 % (37.0-53.0); Hemoglobin 13.2 g/dL (13.5-17.5); IMMATURE GRAN PERCENT AUTO 1 % (0-1); LYMPHOCYTES ABSOLUTE AUTO 0.81 K/mm3 (0.84-5.20); LYMPHOCYTES PERCENT AUTO 8 % (21-46); MONOCYTES ABSOLUTE AUTO 0.94 K/mm3 (0.16-1.47); MONOCYTES PERCENT AUTO 9 % (4-13); Mean Corpuscular HGB 27.4 pg (26.0-34.0); Mean Corpuscular HGB Conc 32.8 g/dL (31.5-36.5); Mean Corpuscular Volume 83 fL (80-100); NEUTROPHILS ABSOLUTE AUTO 8.95 K/mm3 (1.96-9.15); NEUTROPHILS PERCENT AUTO 83 % (41-73); RDW Coefficient Variation 21.5 % (11.7-14.2); RDW Standard Deviation 64.5 fL (35.1-46.3); Red Blood Cell Count 4.82 M/mm3 (4.30-5.90); White Blood Cell Count 10.83 K/mm3 (4.00-11.30)
[2019-01-18 05:01] LABS: Platelet Count 5 K/mm3 (150-400)
[2019-01-18 05:10] LABS: Alanine Aminotransfer (ALT/SGP 24 U/L (12-78); Albumin, Blood 2.7 g/dL (3.4-5.0); Albumin/Globulin Ratio 0.7 (0.8-1.8); Alk Phos 65 U/L (50-136); Anion Gap 4 mmol/L (6-16); Aspartate Aminotrans (AST/SGOT 16 U/L (12-37); Bilirubin, Total 0.3 mg/dL (0.1-1.0); Blood Urea Nitrogen 15 mg/dL (8-24); CO2, Blood 32 mmol/L (21-32); Calcium, Blood 6.9 mg/dL (8.5-10.1); Chloride, Blood 106 mmol/L (98-108); Creatinine, Blood 0.41 mg/dL (0.60-1.20); Globulin, Blood 3.7 g/dL (2.2-4.0); Glomerular Filtration Rate >60 (60-); Glucose, Blood 157 mg/dL (70-99); Potassium, Blood 3.8 mmol/L (3.5-5.5); Sodium, Blood 142 mmol/L (136-145); Total Protein, Blood 6.4 g/dL (6.4-8.2)
--- NOTE | 2019-01-18 05:28 | NUR ---
SHIFT SUMMARY PT HAS NOT SLEPT MUCH TONIGHT, ASKING FOR PAIN MEDICATION EVERY 2 HOURS. PT PLATELET COUNT AT 5 THIS AM, WILL BE RECEIVING 1 UNIT OF PLATELETS. HAS HAD OXYGEN ON PER NC T/O NIGHT. IVF'S INFUSING WITHOUT DIFFICULTY. WILL CONTINUE TO MONITOR.
[2019-01-18 14:06] LABS: HEPARIN INDUCED PLATELET AB 0.156 OD (0.000-0.400)
--- NOTE | 2019-01-18 18:10 | NUR ---
PT HAS BEE AOX4 AND COOPERATIVE OF ALL CARE. PT A ONE PERSON ASSIST TO WHEEL CHAIR. PT HAS BEEN OUT X4 TODAY WITH FAMILLY. PT TREATED FOR PAIN PER EMAR. PT NEEDS READJUSTED FREQUENTLY HE GET UNCOMFORTABLE LAYING IN BED. PT RESTIN IN BED AT THIS TIME.
[2019-01-19 05:07] LABS: BASOPHILS ABSOLUTE AUTO 0.04 K/mm3 (0.00-0.23); BASOPHILS PERCENT AUTO 0 % (0-2); EOSINOPHILS ABSOLUTE AUTO 0.03 K/mm3 (0.00-0.68); EOSINOPHILS PERCENT AUTO 0 % (0-6); Hematocrit 42.5 % (37.0-53.0); Hemoglobin 13.7 g/dL (13.5-17.5); IMMATURE GRAN ABSOLUTE AUTO 0.13 K/mm3 (0.00-0.10); IMMATURE GRAN PERCENT AUTO 1 % (0-1); LYMPHOCYTES ABSOLUTE AUTO 0.82 K/mm3 (0.84-5.20); LYMPHOCYTES PERCENT AUTO 7 % (21-46); MONOCYTES ABSOLUTE AUTO 0.78 K/mm3 (0.16-1.47); MONOCYTES PERCENT AUTO 6 % (4-13); Mean Corpuscular HGB 27.5 pg (26.0-34.0); Mean Corpuscular HGB Conc 32.2 g/dL (31.5-36.5); Mean Corpuscular Volume 85 fL (80-100); NEUTROPHILS ABSOLUTE AUTO 10.62 K/mm3 (1.96-9.15); NEUTROPHILS PERCENT AUTO 86 % (41-73); RDW Coefficient Variation 21.6 % (11.7-14.2); RDW Standard Deviation 66.6 fL (35.1-46.3); Red Blood Cell Count 4.98 M/mm3 (4.30-5.90); White Blood Cell Count 12.42 K/mm3 (4.00-11.30)
[2019-01-19 05:17] LABS: Platelet Count 22 K/mm3 (150-400)
[2019-01-19 05:29] LABS: Anion Gap 4 mmol/L (6-16); Blood Urea Nitrogen 15 mg/dL (8-24); Bun/Creatinine Ratio 37.2 (12.0-20.0); CO2, Blood 31 mmol/L (21-32); Chloride, Blood 103 mmol/L (98-108); Glomerular Filtration Rate >60 (60-); Glucose, Blood 129 mg/dL (70-99); Potassium, Blood 4.2 mmol/L (3.5-5.5); Sodium, Blood 138 mmol/L (136-145)
--- NOTE | 2019-01-19 06:50 | NUR ---
01/19/19 0630 FREQUENT REQUESTS FOR PAIN MEDS THROUGHOUT SHIFT. SEE MAR. PT SLEPT WELL DURING ROUNDS BUT STATED THIS AM HE "DID NOT SLEEP AT ALL!" FREQUENT SNACKS GIVEN AND WAS ASSISTED WITH ADL'S. WAS UP TO W/C ONCE LAST NIGHT WITH BROTHER "TO GO SMOKE".
--- NOTE | 2019-01-19 17:07 | NUR ---
PT AOX4 AND COOPERATIVE OF CARE. PT HAS BEEN WANTING PAIN MEDICAITON 1 HR PRIOR TO MED BEING DUE. PT TREATED PER EMAR. ONE INCIDENT PT HAD HIT CALL LIGHT MULTIPLE TIMES AND KNEW SOMEONE WAS COMING, YET STARTED TO CALL OUT. DUE TO THE INCREASE IN ANXIETY TREATED PT PER EMAR. PT HAS BEEN OUT X2 TODAY WITH FRIENDS. WILL CONTINUE TO MONITOR.
--- NOTE | 2019-01-20 05:49 | NUR ---
01/20/19 0550 LAB HERE FOR BLOOD. MEDICATED FOR PAIN. SLEPT WELL THIS SHIFT FOR ABOUT 6 HOURS AFTER WENT TO SMOKE OUTSIDE WITH BROTHER. STILL WITH CHRONIC HYPERTENSION. MOVES SELF IN BED WITH MINIMAL ASSIST.
[2019-01-20 06:00] LABS: BASOPHILS ABSOLUTE AUTO 0.06 K/mm3 (0.00-0.23); BASOPHILS PERCENT AUTO 1 % (0-2); EOSINOPHILS ABSOLUTE AUTO 0.51 K/mm3 (0.00-0.68); EOSINOPHILS PERCENT AUTO 4 % (0-6); Hematocrit 46.5 % (37.0-53.0); Hemoglobin 15.1 g/dL (13.5-17.5); IMMATURE GRAN ABSOLUTE AUTO 0.19 K/mm3 (0.00-0.10); IMMATURE GRAN PERCENT AUTO 2 % (0-1); LYMPHOCYTES ABSOLUTE AUTO 1.14 K/mm3 (0.84-5.20); LYMPHOCYTES PERCENT AUTO 10 % (21-46); MONOCYTES ABSOLUTE AUTO 1.04 K/mm3 (0.16-1.47); MONOCYTES PERCENT AUTO 9 % (4-13); Mean Corpuscular HGB 27.8 pg (26.0-34.0); Mean Corpuscular HGB Conc 32.5 g/dL (31.5-36.5); Mean Corpuscular Volume 86 fL (80-100); NEUTROPHILS ABSOLUTE AUTO 8.66 K/mm3 (1.96-9.15); NEUTROPHILS PERCENT AUTO 75 % (41-73); RDW Coefficient Variation 21.6 % (11.7-14.2); RDW Standard Deviation 66.9 fL (35.1-46.3); Red Blood Cell Count 5.43 M/mm3 (4.30-5.90)
[2019-01-20 06:04] LABS: Platelet Count 14 K/mm3 (150-400)
[2019-01-20 06:12] LABS: Anion Gap 1 mmol/L (6-16); Blood Urea Nitrogen 21 mg/dL (8-24); Bun/Creatinine Ratio 53.3 (12.0-20.0); CO2, Blood 35 mmol/L (21-32); Calcium, Blood 7.7 mg/dL (8.5-10.1); Chloride, Blood 100 mmol/L (98-108); Creatinine, Blood 0.39 mg/dL (0.60-1.20); Glomerular Filtration Rate >60 (60-); Glucose, Blood 103 mg/dL (70-99); Potassium, Blood 4.5 mmol/L (3.5-5.5); Sodium, Blood 136 mmol/L (136-145)
[2019-01-20] MEDS ORDERED: Augmentin 875-1 EACH PO (08:49)
[2019-01-20] MEDS ORDERED: SKIN TREATMENT225 GM TOP (08:49)
[2019-01-20] MEDS ORDERED: Oyster Shell C500 MG PO (08:51)
[2019-01-20] MEDS ORDERED: CLON.2 PO (08:52)
[2019-01-20] MEDS ORDERED: FAMO20 PO (08:52)
[2019-01-20] MEDS ORDERED: Flonase 0.05% N16 GM (08:53)
[2019-01-20] MEDS ORDERED: HYDCHL25 PO (08:54)
[2019-01-20] MEDS ORDERED: MUCUS ER600 M1 PO (08:54)
[2019-01-20] MEDS ORDERED: HYDPAM25 PO (08:55)
[2019-01-20] MEDS ORDERED: LEVOFLOXACIN750 MG PO (08:55)
[2019-01-20] MEDS ORDERED: Anti-Diarrheal2 MG PO (08:56)
[2019-01-20] MEDS ORDERED: NICO21TP TOP (08:57)
[2019-01-20] MEDS ORDERED: ONDA4ODT MM (08:57)
[2019-01-20] MEDS ORDERED: PRED20 PO (08:58)
[2019-01-20] MEDS ORDERED: Florastor250 MG PO (08:59)
[2019-01-20] MEDS ORDERED: ROXICODONE5 MG PO (08:59)
[2019-01-20] MEDS ORDERED: TEMA15 PO (09:00)
[2019-01-20] MEDS ORDERED: TAMS.4ER PO (09:00)
--- NOTE | 2019-01-20 12:28 | NUR ---
PATIENT DISCHARGE THE PATIENT WAS DISCHARGED HOME, AFTER DISCHARGE INSTRUCTIONS WERE GIVEN TO THE PATIENT. THE PATIENT WAS NOT HAPPY WITH BEING SENT HOME, BECAUSE HIS TOILET DOES NOT WORK. THE PATIENT WAS GIVEN HIS PRESCRIPTIONS AND REQUESTED TO FOLLOW UP WITH HIS DOCTOR DIRECTED. THE PATIENT LEFT THE HOSPITAL AT 1207.
== END 2019-01-20 12:09 | disposition home or self-care (01) | DRG 871 ==
LOC: ER 07:09 → PCU 10:29 → ICUW 10:29 → PCU 01-14 18:15 → MEDS 01-16 11:35 → ENPENDDIS 01-20 10:39 → MEDS 01-20 12:09
PROVIDERS: Emergency Medicine; Family Medicine; Internal Medicine; ADMIT Internal Medicine
DX: A41.52 Sepsis due to Pseudomonas (principal); J96.01 Acute respiratory failure with hypoxia; E43 Unspecified severe protein-calorie malnutrition; J15.1 Pneumonia due to Pseudomonas; R64 Cachexia; Z68.1 Body mass index [BMI] 19.9 or less, adult; J44.9 Chronic obstructive pulmonary disease, unspecified; Z86.73 Personal history of transient ischemic attack (TIA), and cerebral infarction without residual deficits; F17.210 Nicotine dependence, cigarettes, uncomplicated; E87.6 Hypokalemia; E88.09 Other disorders of plasma-protein metabolism, not elsewhere classified; G43.909 Migraine, unspecified, not intractable, without status migrainosus; F11.10 Opioid abuse, uncomplicated; N40.0 Benign prostatic hyperplasia without lower urinary tract symptoms; M54.9 Dorsalgia, unspecified; G89.29 Other chronic pain
CPT/HCPCS: 36415; 36430; 51703; 71046; 71260; 80048; 80053; 80202; 81001; 83605; 83735; 84132; 84443; 85025; 85027; 86022; 86900; 86901; 87040; 87070; 87077; 87185; 87186; 87205; 87389; 87493; 93005; 93010; 94640; 94760; 94761; 96365-59; 96366; 96368; 96375-59; 97162; 97530; 99285-25; J0360; J0456; J0696; J1650; J1956; J2270; J2405; J2543; J2930; J3010; J3370; J7030; J7050; J7512; P9035; P9053; Q0177; Q9967

== ENCOUNTER 2019-01-21 17:32 | Emergency (ER) | payer OTHER ==
[~2019-01-21] VITALS: Ht 160 cm; Wt 45.4 kg
[~2019-01-21 17:32] MED LIST changes: +ALBU90OI INH; +Anti-Diarrheal2 MG PO; +Augmentin 875-1 EACH PO; +BUDE6HFA INH; +Bactrim 400-801 EACH PO; +CLON.2 PO; +FAMO20 PO; +Flonase 0.05% N16 GM; +Florastor250 MG PO; +HYDCHL25 PO; +HYDPAM25 PO; +LEVOFLOXACIN750 MG PO; +MUCUS ER600 M1 PO; +NICO21TP TOP; +ONDA4ODT MM; +Oyster Shell C500 MG PO; +PRED20 PO; +ROXICODONE5 MG PO; +SKIN TREATMENT225 GM TOP; +TAMS.4ER PO; +TEMA15 PO
== END 2019-01-21 19:47 | disposition home or self-care (01) ==
LOC: ER 17:32
DX: S80.11XA Contusion of right lower leg, initial encounter (principal); Z88.6 Allergy status to analgesic agent; Z88.8 Allergy status to other drugs, medicaments and biological substances; Z88.5 Allergy status to narcotic agent; Z79.899 Other long term (current) drug therapy; Z79.52 Long term (current) use of systemic steroids; I10 Essential (primary) hypertension; J44.9 Chronic obstructive pulmonary disease, unspecified; F17.210 Nicotine dependence, cigarettes, uncomplicated; W22.8XXA Striking against or struck by other objects, initial encounter
CPT/HCPCS: 99283